=== PATIENT | female | born 1950 | race Two or more races ===

== ENCOUNTER 2025-01-16 08:55 | Day surgery (SDC) | payer MEDICAID, SELFPAY ==
[2025-01-10 08:13] VITALS: BMI 28.8
--- NOTE | 2025-01-10 09:36 | EKG_ITS ---
[facility] Test Date: 2025-01-10 Pat Name: BRYAN GARDINER Department: Room: - Gender: Female [employer]: MANISHA : 1950 Requested By: Amina Garcia Order Number: [id number] Reading MD: Amina Garcia Measurements Intervals [place] Rate: 62 P: 33 NV: 175 QRS: 65 QRSD: 112 T: -21 QT: 469 QTc: 477 Interpretive Statements SINUS RHYTHM POSSIBLE INFERIOR MYOCARDIAL INFARCTION , OF INDETERMINATE AGE [30 ms Q WAVE IN II/aVF] Compared to ECG 04/03/2022 17:24:39 Myocardial infarct finding now present /[id number]/[email or web address]/[id number].pdf
[2025-01-10 10:35] LABS: Basophils # (Auto) 0.0 Thou/mm3 (0.0-0.2); Basophils % (Auto) 0 % (0-2.5); Eosinophils # (Auto) 0.2 Thou/mm3 (0.0-0.5); Eosinophils % (Auto) 3 % (0-10); Hematocrit 30.8 % (36.0-46.0); Hemoglobin 10.2 g/dL (12.0-16.0); Immature Granulocytes Auto 0.02 Thou/mm3 (0.00-0.00); Lymphocytes # (Auto) 1.6 Thou/mm3 (1.0-4.8); Lymphocytes % (Auto) 20 % (10-50); Mean Corpuscular HGB Conc 33.1 g/dl (31.0-37.0); Mean Corpuscular Hemoglobin 31.7 pg (25.0-35.0); Mean Corpuscular Volume 96 fL (80-100); Monocytes # (Auto) 1.0 Thou/mm3 (0.0-0.8); Monocytes % (Auto) 13 % (0-12); Neutrophils # (Auto) 5.1 Thou/mm3 (1.8-7.7); Neutrophils % (Auto) 64 % (37-80); Nucleated Red Blood Cell # 0.00 Thou/mm3 (0.00-0.00); Nucleated Red Blood Cell % 0 /100 WBC (0); Platelet Count 192 Thou/mm3 (140-440); RDW Standard Deviation 44.6 fL (36.4-46.3); Red Blood Count 3.22 Miln/mm3 (4.00-5.20); White Blood Count 7.9 Thou/mm3 (3.6-11.0)
[2025-01-10 10:52] LABS: Alanine Aminotransferase 43 U/L (10-49); Albumin, Serum 4.7 gm/dL (3.4-4.8); Albumin/Globulin Ratio 1.3 (1.2-2.2); Alkaline Phosphatase 177 U/L (46-116); Anion Gap 6 (7-16); Aspartate Amino Transferase 46 U/L (0-34); BUN/Creatinine Ratio 7 Ratio (12-20); Bilirubin,Total 0.7 mg/dL (0.3-1.2); Blood Urea Nitrogen 35 mg/dL (9-23); Calcium 9.4 mg/dL (8.3-10.6); Calcium (Corrected) 9.4 mg/dL (8.5-10.1); Carbon Dioxide 31.3 mMol/L (20.0-31.0); Chloride 97 mMol/L (98-107); Creatinine (Component) 4.8 mg/dL (0.6-1.3); Estimated Creatinine Clearance 9.6 mL/min (>60); Globulin 3.5 gm/dL (2.3-3.5); Glucose 97 mg/dL (74-106); Osmolality,Calculated 276 (275-295); Potassium 5.2 mMol/L (3.4-5.1); Sodium 134 mMol/L (136-145); Total Protein 8.2 gm/dL (5.7-8.2); eGFR 9 See Note
--- NOTE | 2025-01-15 14:53 | SUR.PREOP ---
Pt notified to come in at 0930 tomorrow for surgery.
--- NOTE | 2025-01-15 15:37 | SUR.PREOP ---
Pt will be dialyzed tomorrow at 0430 before surgery.
[2025-01-16] VITALS (8 sets, daily range): BP systolic 132–173; BP diastolic 54–70; PULSE 62–68; RESP 13–20; TEMP 36.2–36.6; O2SAT 95–100; BMI 29.1
[2025-01-16 09:57] LABS: Potassium 4.0 mMol/L (3.4-5.1)
[2025-01-16] MEDS: SODIUM CHLORIDE 0.9% 500 ML 500 ML 20 ML IV (10:13)
--- NOTE | 2025-01-16 11:39 | ESOP_ITS ---
Date of Procedure 01/16/25 Pre Op Diagnosis Incarcerated umbilical hernia Post Op Diagnosis Incarcerated umbilical hernia Cirrhosis of the liver with ascites Procedure Laparoscopy, primary repair of incarcerated umbilical hernia Drainage of 5.5 L of ascites Findings An approximately 3.5 cm umbilical hernia defect with incarcerated omentum. Cirrhosis of the liver with large amount of ascites Procedure Description Patient brought into the operating room in supine position. After administration of general orotracheal anesthesia, patient's abdomen prepped and draped in standard surgical manner. A 5 mm incision was made in left upper quadrant and Veress needle was inserted, pneumoperitoneum was obtained to 15 mmHg. The Veress needle was removed and a 5 mm trocar was placed. Laparoscopic camera was inserted, and the abdomen was inspected. Patient was noted to have significant cirrhosis of the liver with large amount of ascites. She was noted to have umbilical hernia with incarcerated omentum. Because of the finding of significant cirrhosis and ascites I elected to primarily repair the hernia defect. Patient was noted to have significant amount of redundant and ulcerated umbilical skin. Ulcerated and redundant umbilical skin was excised. The hernia sac was circumferentially dissected out surrounding tissue. The hernia sac was opened and the contents over the incarcerated omentum were reduced. There was large amount of ascites fluid, approximately 5.5 L of the ascites fluid was drained. The fascia was cleared and primarily repaired with interrupted [id number] sutures using 0 Ethibond. Soft tissue reapproximated with interrupted sutures using 2-0 Vicryl and the incisions closed 4-0 Monocryl subcuticular fashion. Instruments, needles and sponge counts were reported to be correct ?2 patient tolerated the procedure well. Patient was extubated, breathing spontaneously and without difficulty and was transferred to postanesthesia care in stable condition. Anesthesia GETA and local Pathology / specimen Other (Hernia sac along with the redundant umbilical skin) Estimated Blood Loss 10 Condition Stable Disposition PACU Surgeon Amina Garcia MD Surgical Staff Operation Date: 01/16/25 11:30 Case Staff Anesthesiologist: Presley Castle RNcertified art therapist: iL Andersen
--- NOTE | 2025-01-16 11:40 | SUR.PHASEI ---
1140: Pt. AAOx4, vitals stable, breathing unlabored, no complaint of pain or nausea, dressing to ABD CDI, no active bleed noted, report received from MD Castle and Marcy LORENZ.
--- NOTE | 2025-01-16 12:40 | SUR.PHASEII ---
1240: Pt. AAOx4, vitals stable, breathing unlabored, no complaint of pain or nausea, dressing to ABD CDI, no active bleed noted, pt. tolerated sips of water well, pt. ambulated to wheelchair with steady gait and no assist, no complications. Gave discharge instructions to the pt. and her ride using a translator/interpreter, both verbalized understanding and had no further questions. Pt. left with all personal belongings.
== END 2025-01-16 12:40 | disposition home or self-care (01) ==
PROVIDERS: Anesthesiology; PCP Physician Assistant; Referring Provider Surgery; Visit Provider Surgery
PROC: 0WQF4ZZ Repair Abdominal Wall, Percutaneous Endoscopic Approach (ICD-10-PCS; CPT 49594; principal; 2025-01-16 11:15)
DX: K42.0 Umbilical hernia with obstruction, without gangrene (principal); K74.60 Unspecified cirrhosis of liver; R18.8 Other ascites; Z01.810 Encounter for preprocedural cardiovascular examination
CPT/HCPCS: 49594; 36415; 80053; 84132; 85025; 93005; A4217; A4649; J0690; J1100; J2704; J2765; J3010; J3490; J7999; P9045; J1805